=== PATIENT | male | born 1935 | race Caucasian/White ===

== ENCOUNTER 2020-11-11 11:05 | Emergency (ER) | payer OTHER, MEDICARE ==
--- NOTE | 2020-11-11 11:20 | EDM.PDOC ---
ED HPI GENERAL MEDICAL PROBLEM - General Stated Complaint: FALL Time Seen by Provider: 11/11/20 11:10 Source of Information: Reports: Patient, Family History Limitations: Reports: No Limitations - History of Present Illness INITIAL COMMENTS - FREE TEXT/NARRATIVE: Patient presented to the ED with and daughter because of a left rib pain. He tripped and fell yesterday and landed on his left rib. He c/o left rib pain,5/10, worse with breathing and movements. Left Ribs Pain Score (Numeric/FACES): 10 - Related Data Allergies Allergy/AdvReac Type Severity Reaction Status Date / Time No Known Allergies Allergy Verified 11/11/20 12:57 Home Meds: Home Meds traMADol [Ultram] 50 mg PO Q8H PRN #15 tab 11/11/20 [Rx] ED ROS GENERAL - Review of Systems Review Of Systems: See Below Constitutional: Reports: No Symptoms HEENT: Reports: No Symptoms Respiratory: Reports: Pleuritic Chest Pain Cardiovascular: Reports: No Symptoms Endocrine: Reports: No Symptoms GI/Abdominal: Reports: No Symptoms : Reports: No Symptoms Musculoskeletal: Reports: No Symptoms Skin: Reports: No Symptoms Neurological: Reports: No Symptoms Psychiatric: Reports: No Symptoms ED EXAM, GENERAL - Physical Exam Exam: See Below Exam Limited By: No Limitations General Appearance: Alert, No Apparent Distress Ears: Normal External Exam, Normal Canal Nose: Normal Inspection, Normal Mucosa, No Blood Throat/Mouth: Normal Inspection, Normal Lips, Normal Teeth Head: Atraumatic, Normocephalic Neck: Normal Inspection, Supple, Non-Tender Respiratory/Chest: No Respiratory Distress, Lungs Clear, Normal Breath Sounds, No Accessory Muscle Use, Other (tenderness left rib) Cardiovascular: Normal Peripheral Pulses, Regular Rate, Rhythm, No Edema, No Gallop, No JVD, No Murmur GI/Abdominal: Normal Bowel Sounds, Soft, Non-Tender, No Organomegaly Back Exam: Normal Inspection, Full Range of Motion Extremities: Normal Inspection, Normal Range of Motion, Non-Tender Neurological: Alert, Oriented, CN II-XII Intact Course - Vital Signs Text/Narrative:: CXR and Left rib xray-see result,no fracture Last Recorded V/S: Last Vital Signs Temp 37.1 C 11/11/20 12:10 Pulse 68 11/11/20 12:10 Resp 16 11/11/20 12:10 BP 138/68 11/11/20 12:10 Pulse Ox 97 11/11/20 12:10 Departure - Departure Time of Disposition: 12:00 Disposition: Home, Self-Care 01 Condition: Good Clinical Impression: Rib contusion, Fall - Discharge Information Prescriptions: traMADol [Ultram] 50 mg PO Q8H PRN #15 tab PRN Reason: Pain Instructions: Rib Contusion, Fall Prevention in the Home, Adult Referrals: PCP,Not In Area [Primary Care Provider] - Forms: ED Department Discharge Additional Instructions: Please read discharge instructions on rib contusion and fall Take tramadol 50 mg with tylenol 1000 mg every 8 hours as needed for pain Follow up as needed Sepsis Event Note (ED) - Focused Exam Vital Signs: Vital Signs Temp Pulse Resp BP Pulse Ox 11/11/20 12:10 37.1 C 68 16 138/68 97 11/11/20 11:05 37.7 C 71 18 161/75 H 98
--- NOTE | 2020-11-11 13:22 | CR ---
INDICATION: Fall, left rib and chest pain. LEFT RIBS WITH CHEST 96009: PA view of the chest with three additional views of the left ribs were obtained 11/11/20-no comparisons. The heart appears to be at the upper limits of normal in size, but is emphasized by what appears to be relatively poor inspiration. The aorta is tortuous to a mild degree with calcifications in the arch and minimally in the descending portion. A definite active infiltrate, effusion, contusion or pneumothorax was not identified. However, there are some heavy markings at the left lower lobe, which may be partly atelectatic and/or fibrotic in nature. A BB was placed over the lower lateral ribs on the left to show the site of injury. A displaced fracture or other definite bony abnormality of the ribs was not identified. IMPRESSION: 1. ASD aorta. 2. Somewhat heavy markings in the left lower lobe may be fibrotic in nature, possibly with some linear atelectatic change-minimal pneumonia or contusion is difficult to entirely exclude, but less likely. 3. No acute fracture site identified in the left ribs. [facility]
== END 2020-11-11 12:10 | disposition home or self-care (01) ==
LOC: FB.ED 11:05
DX: S20.212A Contusion of left front wall of thorax, initial encounter (principal); W01.0XXA Fall on same level from slipping, tripping and stumbling without subsequent striking against object, initial encounter
CPT/HCPCS: 71101-LT; 99283-25